=== PATIENT | female | born 1960 | race Caucasian/White ===

== ENCOUNTER 2017-01-01 11:49 | Day surgery (SDC) | payer BC, OTHER ==
[2017-01-01] MEDS ORDERED: fentaNYL 100 MCG/2 ML INJ IVP ONE (11:53)
[2017-01-01] MEDS ORDERED: NS 500 ML IV ONE (11:53)
[2017-01-01] MEDS ORDERED: BENZOCAINE UNIT DOSE SPRAY HURRICAINE MM ONE (11:53)
[2017-01-01] MEDS ORDERED: MIDAZOLAM 2 MG/2 ML VIAL IVP ONE (11:53)
[2017-01-01] MEDS ORDERED: ATROPINE SULFATE 1 MG/10 ML SYR IVP ONE (11:53)
--- NOTE | 2017-01-01 13:16 | PDHPUP ---
History & Physical Update H&P update statement: This history and physical update is based on an assessment of the patient which was completed after admission or registration (within 24 hours), but prior to the surgery/procedure. H&P update: H&P reviewed & patient examined, no change in patient's condition since H&P completed
[2017-01-01 13:43] LABS: INR 3.23 (0.83-1.16); PROTIME(PATIENT) 33.5 SEC (12.0-15.0)
[2017-01-01 13:44] LABS: ANION GAP 12 mEq/L (8-16); APTT 44.2 SEC (23.0-38.0); CALCIUM 9.9 mg/dL (8.5-10.4); CARBON DIOXIDE 25 mEq/l (22-31); CHLORIDE 107 mEq/L (97-110); CREATININE 0.7 mg/dL (0.6-1.0); GLOMERULAR FILTRATION RATE > 60; GLUCOSE 137 mg/dL (70-100); MAGNESIUM 1.9 mg/dL (1.6-2.3); POTASSIUM 4.1 mEq/L (3.5-5.2); SODIUM 144 mEq/L (134-144)
[2017-01-01] MEDS ORDERED: PROPOFOL 200 MG/20 ML VIAL ONE (14:06)
[2017-01-01] MEDS ORDERED: LIDOCAINE 2% 5 ML SDV ONE (14:06)
--- NOTE | 2017-01-01 14:18 | PDANEPAE ---
ANE History of Present Illness 56 yo female with multi co-morbidities with CHF recently, possibly related to A flutter. ANE Past Medical History - Cardiovascular History Hx Hypertension: Yes Hx Arrhythmias: Yes Hx CHF / Valvular Disease: Yes - Pulmonary History Hx Asthma/Reactive Airway Disease: Yes Hx Oxygen in Use at Home: Yes Hx Sleep Apnea: Yes - Endocrine History Hx Diabetes: Yes Obesity: severe - GI History GERD: no ANE Review of Systems Review of Systems: - Exercise capacity METS (RN): 2 METS - Systems Respiratory: Reports: cough (cough in AM), shortness of breath ANE Patient History - Allergies Allergies/Adverse Reactions: No Known Allergies Allergy (Unverified 03/08/15 12:06) - Home Medications Home medications: home medication list seen and reviewed Home Medications: Acetazolamide 125 mg PO DAILY 01/01/17 [Last Taken Unknown] Atorvastatin Calcium 40 mg PO DAILY 01/01/17 [Last Taken Unknown] Jsnvotd-Jpuzvecry-Vkpt Tablet 01/01/17 [Last Taken Unknown] - NPO status NPO Status: no food or drink >8 hours - Anes Hx Anes Hx: no prior problems - Smoking Hx Smoking Status: Former smoker Marijuana use: No - Alcohol Use Alcohol Use: Rarely ANE Labs/Vital Signs - Labs Result Diagrams: 01/01/17 13:12 - Vital Signs Vital Signs: reviewed preoperatively; see RN documention for details Height: 160.02 cm Weight: 114.8 kg ANE Physical Exam - Airway Neck exam: FROM Mallampati Score: Class 3 Mouth exam: normal dental/mouth exam - Pulmonary Pulmonary: inspiratory crackles, rhonchi - Cardiovascular Cardiovascular: bradycardia - ASA Status ASA Status: IV ANE Anesthesia Plan Anesthesia Plan: GA with mask Total IV Anesthesia: Yes
--- NOTE | 2017-01-01 17:10 | ECHO ---
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 Exam Location: Echo lab Patient Fasting: yes Conclusions: Normal global systolic LV function. Moderately dilated right ventricle. Moderately reduced RV function. The left atrium is severely dilated. Minimal bubbles crossed from RA to LA. Primum ASD was surgically repaired. Mitral valve mean gradient was 5 mmHG. Mild mitral valve regurgitation is present. An annuloplasty ring is noted in the mitral valve position. Moderate to severe tricuspid valve regurgitation. Right ventricular systolic pressure measures 53 plus RA pressuremmHg. There is a tricuspid valve ring. Measurements: Chambers Valvular Assessment AV/MV Valvular Assessment TV/PV Normal Normal Normal Name Value Range Name Value Range Name Value Range TR Vmax: 3.64 mm/s ( - ) TR PGmax: 53 mmHg ( - ) Additional Measurements: Patient: RAMA CROWE Study Date: 01/01/2017 Page 1 of 2 01:21 PM Findings: Left Ventricle: Normal global systolic LV function. Right Ventricle: Moderately dilated right ventricle. Moderately reduced RV function. Left Atrium: The left atrium is severely dilated. An agitated saline study was performed and was positive for intracardiac shunting. Minimal bubbles crossed from RA to LA. Primum ASD was surgically repaired. Left Atrial Appendage: Possible thrombus in left appendage. Mitral Valve: Mitral valve mean gradient was 5 mmHG. Mild mitral valve regurgitation is present. An annuloplasty ring is noted in the mitral valve position. Tricuspid Valve: Moderate to severe tricuspid valve regurgitation. Right ventricular systolic pressure measures 53 plus RA pressuremmHg. There is a tricuspid valve ring. Aorta: The aorta is normal. l1n (No Signature Object) Patient: RAMA CROWE Study Date: 01/01/2017 Page 2 of 2 01:21 PM D:_[id number]
--- NOTE | 2017-01-05 08:18 | CPEKG ---
Heart Rate: 50 RR Interval: 1200 P-R Interval: 176 QRSD Interval: 108 QT Interval: 484 QTC Interval: 442 P [place]: 102 QRS [place]: -72 T Wave [place]: 126 EKG Severity - ABNORMAL ECG - EKG Impression: SINUS RHYTHM EKG Impression: LEFT ANTERIOR FASCICULAR BLOCK EKG Impression: PROBABLE ANTEROSEPTAL INFARCT, OLD EKG Impression: BORDERLINE T WAVE ABNORMALITIES Electronically Signed By: Jasen Walton 05-Jan-2017 08:47:00
== END 2017-01-01 16:52 | disposition home or self-care (01) ==
LOC: FCATH 11:49
PROVIDERS: ATTEND Internal Medicine Cardiovascular Disease
PROC: B245ZZ4 Ultrasonography of Left Heart, Transesophageal (ICD-10-PCS; principal; 2017-01-01)
DX: I48.92 Unspecified atrial flutter (principal); Q24.9 Congenital malformation of heart, unspecified; E78.5 Hyperlipidemia, unspecified; I27.2 Other secondary pulmonary hypertension; I11.0 Hypertensive heart disease with heart failure; I50.9 Heart failure, unspecified; E11.9 Type 2 diabetes mellitus without complications; G47.33 Obstructive sleep apnea (adult) (pediatric); J45.909 Unspecified asthma, uncomplicated; Z95.2 Presence of prosthetic heart valve
CPT/HCPCS: J2704

== ENCOUNTER → 2017-05-29 | Outpatient (CLI) | payer OTHER | LOC: CLAB 12:14 → EDSTATUS 12:26 → CIMAGING 12:26 | PROVIDERS: ATTEND Internal Medicine | DX: M79.672 Pain in left foot (principal) | CPT/HCPCS: 73630-PO ==

== ENCOUNTER 2017-06-11 18:29 | Emergency (ER) | payer OTHER ==
--- NOTE | 2017-06-11 19:07 | CPEKG ---
Heart Rate: 80 RR Interval: 750 P-R Interval: 276 QRSD Interval: 100 QT Interval: 392 QTC Interval: 453 P [place]: 70 QRS [place]: -36 T Wave [place]: 109 EKG Severity - ABNORMAL ECG - EKG Impression: SINUS RHYTHM EKG Impression: FIRST DEGREE AV BLOCK EKG Impression: LEFT AXIS DEVIATION EKG Impression: PROBABLE ANTEROSEPTAL INFARCT, OLD EKG Impression: LATERAL LEADS ARE ALSO INVOLVED Electronically Signed By: Danny Matos 11-Jun-2017 23:17:01
[2017-06-11 19:57] LABS: PLATELET COUNT 352 10^3/uL (150-400)
[2017-06-11] MEDS ORDERED: FUROSEMIDE 40 MG/4 ML VIAL IVP ONE (20:21)
[2017-06-11] MEDS ORDERED: NITROGLYCERIN 2% 1 GM PACKET TP ONE (20:21)
[2017-06-11 21:33] VITALS: BP 126/63; PULSE 92; RESP 18; O2SAT 95
--- NOTE | 2017-06-11 21:39 | EDPHY ---
H & P Stated Complaint: increased SOB Time Seen by Provider: 06/11/17 18:49 HPI/ROS: This patient complains of dyspnea. She reports that this has been gradually increasing over the past week and half for so. Her recent history is notable for her being taken off of her Lasix-80 mg twice daily [address] Wise, her primary care physician due to renal insufficiency that time with elevated creatinine and apparent dehydration. She also recently had an episode of gout treated with prednisone which she finished yesterday with improvement in her left lower extremity gout-in the ankle. She reports that her dyspnea is more notable with exertion. No other exacerbating factors. She wears a BiPAP at night for sleep apnea so she has not had any paroxysmal nocturnal dyspnea or or other dyspnea at night. She does note significant increase in lower extremity edema since stopping her Lasix. She came in by private vehicle for evaluation of the symptoms. ROS: Constitutional: No fevers. HEENT: No complaints new line pulmonary: Dyspnea as above. No coughing. Cardiovascular: As per HPI. She has no chest pain. She does report slight intermittent tightness that feels more like dyspnea at her than pain. GI: No abdominal pain. No nausea vomiting. Normal bowel movements. : No complaints new line integumentary: No complaints Musculoskeletal: Low left lower extremity discomfort is nearly resolved after treatment for gout. Endocrine: No complaints 10 point ROS is otherwise negative. Source: Patient Exam Limitations: No limitations - Medical/Surgical History Hx Asthma: No Hx Chronic Respiratory Disease: Yes Hx Diabetes: Yes Hx Cardiac Disease: Yes Hx Renal Disease: No Hx Cirrhosis: No Hx Alcoholism: No Hx HIV/AIDS: No Hx Splenectomy or Spleen Trauma: No Other PMH: heart surgery 1987 - repair of ASD, repair of mitral and tricuspid valves., gout, a flutter, - Family History Significant Family History: No pertinent family hx - Social History Smoking Status: Former smoker Alcohol Use: Rarely Drug Use: None - Physical Exam Exam: Vital signs notable for tachypnea at 22 and O2 sat of 88% on room air that corrects with nasal cannula O2. She is also hypertensive initially 177/92. Afebrile. Pulse rate of 88 General Appearance: Pleasant morbidly obese female Alert, no distress. Eyes: Pupils equal and round no pallor or injection. ENT, Mouth: Mucous membranes moist. Respiratory: Diminished breath sounds at the bases bilaterally. Cardiovascular: Regular rate and rhythm. No murmur gallop or rub is appreciated. She has 3+ pitting edema bilateral lower extremities. No obvious JVD though her obesity makes this exam difficult. Gastrointestinal: Abdomen is soft and nontender, no masses, bowel sounds normal. Neurological: GCS 15. Skin: Warm and dry, no rashes. Musculoskeletal: Neck is supple nontender. Extremities are symmetrical, full range of motion. Psychiatric: Mood and affect are normal DIFFERENTIAL DIAGNOSIS: After history and physical exam differential diagnosis was considered for CHF, peripheral edema, pneumonia, myocardial ischemic disease Constitutional: Initial Vital Signs Heart Rate 88 06/11/17 18:37 Respiratory Rate 22 H 06/11/17 18:37 Blood Pressure 177/92 H 06/11/17 18:37 O2 Sat (%) 88 L 06/11/17 18:37 O2 Delivery Mode Nasal Cannula O2 (L/minute) 3 Allergies/Adverse Reactions: No Known Allergies Allergy (Verified 06/11/17 18:44) Home Medications: Medication Instructions Recorded Aspirin [Aspirin 81mg (*)] 81 mg PO DAILY 01/01/17 Atorvastatin Calcium [Lipitor 20 20 mg PO BID 01/01/17 mg (*)] Budesonide/Formoterol 160/4.5 2 puffs IH BID 01/01/17 [Symbicort 160-4.5 Mcg Inh (*)] Calcium Carb/D3/Magnesium/Zinc 1 each PO DAILY 01/01/17 [Yosef Mag Zinc + D Tablet] Carvedilol [Coreg (*)] 3.125 mg PO BIDMEAL 01/01/17 Cholecalciferol Vit D3 [Vitamin D3 1,000 units PO HS 01/01/17 (*)] Cinnamon Bark [Cinnamon] 1,000 mg PO BID 01/01/17 Diltiazem [Cardizem 60 MG (*)] 120 mg PO BID 01/01/17 Gemfibrozil [Lopid 600 MG (*)] 600 mg PO BID 01/01/17 Lisinopril [Zestril 5 mg (*)] 5 mg PO DAILY 01/01/17 [place]-3 Fatty Acids [Fish Oil 1000 1 cap PO BID 01/01/17 mg (*)] Vitamin B Complex [B Complex] 1 each PO BID 01/01/17 Warfarin Sodium [Warfarin Pharmacy 1 each MISC AD 01/01/17 To Dose] acetaZOLAMIDE [Diamox 250 mg (RX)] 125 mg PO QAM 01/01/17 metFORMIN HCL [Glucophage 500 mg 750 mg PO BIDMEAL 01/01/17 (*)] sitaGLIPtin PHOSPHATE [Januvia 100 100 mg PO DAILY 01/01/17 MG (*)] Medical Decision Making - Diagnostics EKG Interpretation: 12 lead EKG performed shortly after arrival indication dyspnea rule out LA Performed at 7:04 p.m. Reveals sinus rhythm at 80 Intervals: P R of 276, QRS of 100, QTC of 453 [place]: P of 70, QRS of -36, T of [address] segments: Normal throughout Overall assessment sinus rhythm with first-degree AV block, left axis deviation , old anteroseptal infarct When compared to a prior EKG dated 01/01/2017 appreciate no significant interval change. Imaging Results: Two view chest x-ray: Mild cardiomegaly and pulmonary edema Consistent with CHF by my interpretation Imaging: I viewed and interpreted images myself ED Course/Re-evaluation: Studies: CBC reveals mild leukocytosis, minimal anemia with a crit of 36. Basic metabolic panel reveals a normal creatinine and no other significant abnormalities. Troponin is normal. He BNP is elevated to 1020 Course: IV Lasix -40 mg with brisk diuresis 0.5 in nitropaste I counseled patient regarding CHF. This exacerbations presumably attributable to her stopping the Lasix due to renal insufficiency. Will plan to restart her at a lower dose of 40 mg Lasix 2 times a day. She also restart her potassium. Given lack of acute cardiac symptoms, stable EKG in normal troponin, I do not think she has a coronary syndrome or other acute complications. I counseled regarding this. She has home O2 and will continue this until her dyspnea improved. She will follow up with her primary care physician, Dr. Wise. She understands need to return emergency department should she develop any significant worsening despite the treatment plan. - Data Points Laboratory Results: Laboratory Results 06/11/17 19:52 06/11/17 Unknown Medications Given: Discontinued Medications Furosemide (Lasix Injection) 40 mg IVP EDNOW ONE Stop: 06/11/17 20:22 Last Admin: 06/11/17 20:29 Dose: 40 mg Nitroglycerin (Nitro-Bid 2%) 0.5 inch TP EDNOW ONE Stop: 06/11/17 20:22 Last Admin: 06/11/17 20:29 Dose: 0.5 inch Departure - Departure Disposition: Home, Routine, Self-Care Clinical Impression: CHF exacerbation Qualifiers: Heart failure type: unspecified Qualified Code(s): I50.9 - Heart failure, unspecified Condition: Good Instructions: Heart Failure (ED), Low-Sodium Diet (ED) Additional Instructions: Diagnosis: Congestive heart failure exacerbation Plan: Restart your Lasix but at a lower dose of 40 mg 2 times a day. Restart potassium at 20 mEq a day Continue other medications Follow up with Dr. Elliott for a recheck this week Return to the emergency department for any significant worsening despite the treatment plan. Referrals: Carolina Elliott MD [Primary Care Provider] - As per Instructions
== END 2017-06-11 21:50 | disposition home or self-care (01) ==
LOC: CED 18:29
DX: I50.9 Heart failure, unspecified (principal); E11.9 Type 2 diabetes mellitus without complications; Z79.01 Long term (current) use of anticoagulants; Z79.82 Long term (current) use of aspirin; Z79.84 Long term (current) use of oral hypoglycemic drugs; Z87.891 Personal history of nicotine dependence
CPT/HCPCS: 71046-PO; 80048-PO; 82947-QW; 83880-PO; 84484-PO; 85025-PO; 96374; J1940

== ENCOUNTER 2018-04-29 14:41 | Emergency (ER) | payer OTHER ==
[2018-04-29 15:00] VITALS: BP 144/78
--- NOTE | 2018-04-29 15:18 | EDPHY ---
H & P Stated Complaint: fall today at 8am, injury to left knee with laceration Time Seen by Provider: 04/29/18 15:06 HPI/ROS: CHIEF COMPLAINT: Laceration HISTORY OF PRESENT ILLNESS: Patient is a 58-year-old obese female who states that she fell at 8:00 a.m. This morning. She has a skin tear to her left knee. She has been ambulating since that time is not worried about a fracture. She states that she was able to control her fall to some degree. She denies other injury. She states that this fall was mechanical. She does have history of atrial fibrillation and valve repair and is on Eliquis. No recent fevers. No head injury. No headache. No neck pain. No syncope. No chest pain. Severity: Moderate Modifying factors: None REVIEW OF SYSTEMS: Constitutional: denies: chills, fever, recent illness, recent injury EENTM: denies: blurred vision, double vision, nose congestion Respiratory: denies: cough, shortness of breath Cardiac: denies: chest pain, irregular heart rate, lightheadedness, palpitations Gastrointestinal/Abdominal: denies: abdominal pain, diarrhea, nausea, vomiting, blood streaked stools Genitourinary: denies: dysuria, frequency, hematuria, pain Musculoskeletal: denies: joint pain, muscle pain Skin: See HPI Neurological: denies: headache, numbness, paresthesia, tingling, dizziness, weakness Hematologic/Lymphatic: denies: blood clots, easy bleeding, easy bruising Immunologic/allergic: denies: HIV/AIDS, transplant 10 systems reviewed and negative except as noted EXAM: GENERAL: Well-appearing, well-nourished and in no acute distress. HEAD: Atraumatic, normocephalic. EYES: Pupils equal round and reactive to light, extraocular movements intact, sclera anicteric, conjunctiva are normal. ENT: TMs normal, nares patent, oropharynx clear without exudates. Moist mucous membranes. NECK: Normal range of motion, supple without lymphadenopathy or JVD. LUNGS: Breath sounds clear to auscultation bilaterally and equal. No wheezes rales or rhonchi. HEART: Regular rate and rhythm without murmurs, rubs or gallops. ABDOMEN: Soft, nontender, normoactive bowel sounds. No guarding, no rebound. No masses appreciated. BACK: No CVA tenderness, no spinal tenderness, step-offs or deformities EXTREMITIES: Normal range of motion, no pitting or edema. No clubbing or cyanosis. NEUROLOGICAL: Cranial nerves II through XII grossly intact. Normal speech, normal gait. 5/5 strength, normal movement in all extremities, normal sensation , normal reflexes PSYCH: Normal mood, normal affect. SKIN: Skin tear left knee Source: Patient Exam Limitations: No limitations - Personal History Current Tetanus Diphtheria and Acellular Pertussis (TDAP): Yes Tetanus Vaccine Date: within 10 yrs - Medical/Surgical History Hx Asthma: No Hx Chronic Respiratory Disease: Yes Hx Diabetes: Yes Hx Cardiac Disease: Yes Hx Renal Disease: No Hx Cirrhosis: No Hx Alcoholism: No Hx HIV/AIDS: No Hx Splenectomy or Spleen Trauma: No Other PMH: heart surgery 1987 - repair of ASD, repair of mitral and tricuspid valves., gout, a flutter, - Family History Significant Family History: No pertinent family hx - Social History Smoking Status: Former smoker Alcohol Use: Sober Drug Use: None Constitutional: Initial Vital Signs Temperature (C) 36.6 C 04/29/18 14:58 Heart Rate 90 04/29/18 14:58 Respiratory Rate 24 H 04/29/18 14:58 Blood Pressure 144/78 H 04/29/18 14:58 O2 Sat (%) 97 04/29/18 14:58 O2 Delivery Mode Nasal Cannula O2 (L/minute) 3 Allergies/Adverse Reactions: No Known Allergies Allergy (Verified 06/11/17 18:44) Home Medications: Medication Instructions Recorded Aspirin [Aspirin 81mg (*)] 81 mg PO DAILY 01/01/17 Atorvastatin Calcium [Lipitor 20 20 mg PO BID 01/01/17 mg (*)] Budesonide/Formoterol 160/4.5 2 puffs IH BID 01/01/17 [Symbicort 160-4.5 Mcg Inh (*)] Calcium Carb/D3/Magnesium/Zinc 1 each PO DAILY 01/01/17 [Yosef Mag Zinc + D Tablet] Carvedilol [Coreg (*)] 3.125 mg PO BIDMEAL 01/01/17 Cholecalciferol Vit D3 [Vitamin D3 1,000 units PO HS 01/01/17 (*)] Cinnamon Bark [Cinnamon] 1,000 mg PO BID 01/01/17 Diltiazem [Cardizem 60 MG (*)] 120 mg PO BID 01/01/17 Gemfibrozil [Lopid 600 MG (*)] 600 mg PO BID 01/01/17 Lisinopril [Zestril 5 mg (*)] 5 mg PO DAILY 01/01/17 [place]-3 Fatty Acids [Fish Oil 1000 1 cap PO BID 01/01/17 mg (*)] Vitamin B Complex [B Complex] 1 each PO BID 01/01/17 Warfarin Sodium [Warfarin Pharmacy 1 each [facility] AD 01/01/17 To Dose] acetaZOLAMIDE [Diamox 250 mg (RX)] 125 mg PO QAM 01/01/17 metFORMIN HCL [Glucophage 500 mg 750 mg PO BIDMEAL 01/01/17 (*)] sitaGLIPtin PHOSPHATE [Januvia 100 100 mg PO DAILY 01/01/17 MG (*)] Medical Decision Making Procedures: Procedure: Laceration repair. Verbal consent was obtained from the patient. The 5 cm crescent-shaped left knee skin tear/ laceration was anesthetized with 1% lidocaine with epi and bicarbonate locally infiltrated. The wound was irrigated copiously according to protocol, draped and explored to its base. It was approximately 1/2 cm deep. There were no deep structures involved. No tendon, nerve, or vascular injury was identified when explored through full range of motion. No foreign body was identified. The wound was repaired with 4.0 and 5 point Prolene, I placed 5 horizontal mattress sutures for strength, I then placed 22 more additional superficial sutures. 1 interrupted and the rest running inter locked. The wound repair was moderately complex with flap realignment and layers of closure. We then placed Steri-Strips over the top and wrapped with an Yovany bandage to limit flexion of her knee. The procedure was performed by myself. A dressing was then placed with sterile gauze. ED Course/Re-evaluation: Patient tolerated irrigation and suture repair well. We discussed nicci Yovany wrap verses a knee brace to limit flexion of her knee. 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 We have her afternoon Yovany wrap and have discussed limiting range of motion. I also offered to perform x- rays but she declines. She is ambulating without difficulty and does not think she broke anything. We discussed follow-up and suture care and removal. Differential Diagnosis: Partial list of the Differential diagnosis considered include but were not limited to; skin tear, laceration and although unlikely based on the history and physical exam, I also considered fracture, open joint, foreign body. I discussed these differential diagnoses and the plan with the patient as well as the usual and expected course. The patient understands that the diagnosis is provisional and that in medicine we are not always correct and that further workup is often warranted. Usual and customary warnings were given. All of the patient's questions were answered. The patient was instructed to return to the emergency department should the symptoms at all worsen or return, otherwise to followup with the physician as we discussed. Departure - Departure Disposition: Home, Routine, Self-Care Clinical Impression: Skin tear of lower leg without complication Qualifiers: Encounter type: initial encounter Laterality: left Qualified Code(s): S81.812A - Laceration without foreign body, left lower leg, initial encounter Condition: Fair Instructions: Care For Your Stitches (ED), Skin Tear (ED) Additional Instructions: Have your sutures removed in 10 days. Referrals: Jhoana Contreras, TRA[employer] MANAGER [Primary Care Provider] - 2-3 days, if not improved
== END 2018-04-29 16:07 | disposition home or self-care (01) ==
LOC: CED 14:41
PROC: 0HQLXZZ Repair Left Lower Leg Skin, External Approach (ICD-10-PCS; principal; 2018-04-29)
DX: S81.812A Laceration without foreign body, left lower leg, initial encounter (principal); I48.91 Unspecified atrial fibrillation; E11.9 Type 2 diabetes mellitus without complications; E66.9 Obesity, unspecified; Z68.41 Body mass index [BMI] 40.0-44.9, adult; Z79.01 Long term (current) use of anticoagulants; Z79.84 Long term (current) use of oral hypoglycemic drugs; Z79.82 Long term (current) use of aspirin; Z87.74 Personal history of (corrected) congenital malformations of heart and circulatory system; Z87.891 Personal history of nicotine dependence; W19.XXXA Unspecified fall, initial encounter
CPT/HCPCS: 99284-ER

== ENCOUNTER 2018-05-09 16:00 | Emergency (ER) | payer OTHER | END 2018-05-09 17:52 | disposition home or self-care (01) | LOC: CED 16:00 | DX: S81.812D Laceration without foreign body, left lower leg, subsequent encounter (principal); W19.XXXD Unspecified fall, subsequent encounter; Y92.9 Unspecified place or not applicable; Y93.9 Activity, unspecified | CPT/HCPCS: 99283-ER ==

== ENCOUNTER → 2018-08-30 | Day surgery (SDC) | payer OTHER ==
[~2018-08-30] MED LIST: ASPIRIN EC 325 MG TAB PO ONE; DIAZEPAM 5 MG TAB PO ONE; EPOPROSTENOL SODIUM (ARGININE) 300,000 NG in NS 100 ML IV ONE; FAMOTIDINE 20 MG TAB PO ONE; HEPARIN 10,000 UNIT/10 ML MDV (1,000 UNIT/ML) ONE; HYDROCODONE/APAP 5/325 TAB PO PRN; IOPAMIDOL (ISOVUE 370) 100 ML BTL IV ONE; LIDOCAINE 1% 5 ML SDV ONE; MIDAZOLAM 2 MG/2 ML VIAL ONE; NS 1,000 ML IV ONE; OXYCODONE/APAP 5/325 TAB PO PRN; VERAPAMIL 5 MG/2 ML VIAL ONE; diphenhydrAMINE 25 MG CAP PO ONE; fentaNYL 100 MCG/2 ML INJ ONE
[2018-08-30 11:02] LABS: PLATELET COUNT 466 10^3/uL (150-400)
[2018-08-30 11:17] LABS: INR 1.17 (0.83-1.16); PROTIME(PATIENT) 14.4 SEC (12.0-15.0)
--- NOTE | 2018-08-30 11:18 | PDPROPOC ---
Sedation Plan of Care Sedation Plan of Care: vital signs stable, mental status noted, patient educated of risks, benefits, alternatives, patient can tolerate sedation ASA Classification: ASA 2 Planned drugs: fentanyl, midazolam Mallampati Score: Class 1 Mallampati Reference Image: Patient passed 3-3-2 rule?: Yes
--- NOTE | 2018-08-30 13:51 | PDDXCAT ---
Diagnostic Cath Note - . Date: 08/30/18 Registered Nurse: Parrish Indication: other (pre-op mitral stenosis) - Procedure Access: left wrist Procedure: left heart catheterization, coronary angiography, left ventriculogram - Materials Left Heart Cath size: 4F Left Heart Cath materials: standard multipack (JL4, JR4, pigtail) - Findings-Left Heart Catheterization LM: normal LAD: normal LCX: normal RCA: dominant:normal EDP: 20 mmhg LVEF: 60 Wall motion: normal Complications: none Estimated blood loss: <50ml Closure method: TR Band Assessment: normal cors. normal LV function Patient Problems: Problems Problem Status Onset CHF exacerbation Acute
--- NOTE | 2018-08-30 17:27 | PDDXCAT ---
Diagnostic Cath Note - . Date: 08/30/18 Pig Breeder: Other (William Anton) Indication: other (Echocardiographic evidence of severe pulmonary hypertension, mitral valve disease) - Procedure Procedure: right heart catheterization (with real time ultrasound-guided IV access and acute vasoreactivity testing), other (Consent was obtained prior to procedure and placed in chart. Patient was prepped and draped in the usual sterile fashion. Under real-time ultrasound guidance the right IJ was visualized and pulsatile flow was noted. The right IJ was cannulated under real -time ultrasound guidance in 1 stick with an 18 gauge finer needle in the wire was passed and dilator place. A 7 [place] PA catheter was advanced into the SVC through the right atrium into the right ventricle, PA, and wedge position and measurements were obtained. A PA saturation was obtained. Both Fifi and thermodilution cardiac outputs were obtained. Subsequently even process in all was started and up titrated to 10 milligrams/kilogram per minute and repeat measurements were obtained. Patient tolerated procedure well without any immediate complications) - Materials Right Heart Cath size: 7F Right Heart Cath materials: PWP catheter - Findings-Right Heart Catheterization RA: 22/24 RV: 94/33, RVEDP 24 PA: Baseline: 96/33 (58), PA sat 58%. Epoprostenol at 10 ng/kg/min 90/38 (58) , PA sat 67% PAOP: End Exp 30, LVEDP obtained simultaneously - 28. Mean mitral valve gradient 12. Repeat on epoprostenol 10 ng/kg/min 32 AO: 95.5 CO: Baseline: Fifi CO 3.28 (1.6), Thermodilution 5.17 (2.51). Epoprostenol 10 ng/kg/min: Fifi 4.59 (2.23) CI: baseline PVR: TD PVR 5.41, Fifi PVR 8.5. drug therapy: Fifi PVR 6.1 Complications: no immediate complications Estimated blood loss: other (< 5 cc) Closure method: manual pressure Assessment: 58-year-old female with severe pulmonary hypertension and reduced cardiac output due to longstanding mitral valve disease with possible contribution from longstanding sleep apnea. Plan: -Agree with urgent mitral valve replacement -no role for preoperative PH specific therapies -Although long-term data for PH specific therapies in corrected valve disease is mixed, there is reasonable dated immediate postoperative period for residual PH and RV failure to treat with PH specific therapy to reduce ICU stay and days on ventilator -outpatient follow-up for sleep apnea evaluation and treatment Patient Problems: Problems Problem Status Onset CHF exacerbation Acute
--- NOTE | 2018-09-02 11:47 | CPEKG ---
Test Reason : OPEN Blood Pressure : / mmHG Vent. Rate : 116 BPM Atrial Rate : 103 BPM P-R Int : 095 ms QRS Dur : 111 ms QT Int : 344 ms P-R-T Axes : 000 -46 109 degrees QTc Int : 478 ms Atrial fibrillation Ventricular premature complex Incomplete left bundle branch block LVH with secondary repolarization abnormality Confirmed by Reggie Rodrigues ([id number] on 09/02/2018 11:47:26 AM Referred By: TERESA [email or web address] Confirmed By:Reggie Rodrigues
== END | disposition home or self-care (01) ==
LOC: FCATH 09:50
PROVIDERS: ATTEND Internal Medicine Interventional Cardiology
PROC: 3E033KZ Introduction of Other Diagnostic Substance into Peripheral Vein, Percutaneous Approach (ICD-10-PCS; principal; 2018-08-30)
PROC: 4A023N8 Measurement of Cardiac Sampling and Pressure, Bilateral, Percutaneous Approach (ICD-10-PCS; principal; 2018-08-30)
DX: I34.0 Nonrheumatic mitral (valve) insufficiency (principal); I27.21 Secondary pulmonary arterial hypertension; G47.33 Obstructive sleep apnea (adult) (pediatric); E66.01 Morbid (severe) obesity due to excess calories; Z01.810 Encounter for preprocedural cardiovascular examination
CPT/HCPCS: 93005; 93460; 93463; 93880; C1769; J1325; J1644; J2250; J3010; Q9967

== ENCOUNTER 2018-09-01 18:57 | Emergency (ER) | payer OTHER | END 2018-09-01 20:32 | disposition home or self-care (01) | LOC: CED 18:57 ==

== ENCOUNTER 2018-09-04 14:47 | Emergency (ER) | payer OTHER | END 2018-09-04 16:39 | disposition home or self-care (01) | LOC: CED 14:47 ==

== ENCOUNTER → 2018-09-07 | Outpatient (CLI) | payer OTHER | LOC: CIMAGING 13:23 ==